=== PATIENT | male | born 1955 | race Caucasian/White ===

== ENCOUNTER → 2016-11-25 | Outpatient (CLI) | payer BC ==
[~2016-11-25] MED LIST: ACETAMINOPHEN PO; ASPIRINEC PO; CELEXA20 MG PO; FLEXERIL; LODINE; MIDODRINE PO; XANAX0.5 MG PO
--- NOTE | ~2016-11-25 | EKG ---
PATIENT: BLAISE RAYGOZA UNIT #: [id number] Ventricular Rate: 69 BPM Atrial Rate: 69 BPM P-R Interval: 174 ms QRS Duration: 86 ms Q-T Interval: 368 ms QTC Calculation(Bezet): 394 ms P [place]: 36 degrees Calculated R [place]: 58 degrees Calculated T [place]: 66 degrees Diagnosis Line: Normal sinus rhythm Diagnosis Line: Normal ECG Diagnosis Line: When compared with ECG of 13-SEP-2010 05:45, Diagnosis Line: No significant change was found Diagnosis Line: Confirmed by PAO VALLEJO MD ([id number]) on 11/27/2016 Diagnosis Line: 9:35:53 AM INTERPRETING MD: YONI LA
[2016-11-25 09:13] LABS: CALCIUM SERUM 8.2 mg/dL (8.4-10.2); CREATININE SERUM 1.2 mg/dL (0.6-1.4); GLOM FILT RATE Estimated 65.8 mL/min (>60); HEMATOCRIT 44.6 % (38.0-50.0); HEMOGLOBIN 14.8 gm/dL (13.0-16.0); MEAN CELL VOLUME 93.9 FL (83-96); MEAN CORPUSCULAR HEMOGLOBIN 31.1 PG (28-34); MEAN CORPUSCULAR HGB CONC 33.2 g/dL (30-36); MEAN PLATELET VOLUME 8.9 FL (6.5-11.5); POTASSIUM 4.3 mmol/L (3.5-5.1); RED BLOOD COUNT 4.76 X10e (3.90-5.60); RED CELL DISTRIBUTION WIDTH 12.8 % (11.0-15.5)
== END | disposition home or self-care (01) ==
LOC: SLAB 08:29
PROVIDERS: Orthopaedic Surgery
DX: Z01.818 Encounter for other preprocedural examination (principal)
CPT/HCPCS: 36415; 80048; 85027; 93005